=== PATIENT | female | born 1955 | race Caucasian/White ===

== ENCOUNTER 2020-03-14 15:37 | Emergency (ER) | payer BC, OTHER ==
--- NOTE | 2020-03-14 16:13 | EDM.PDOC ---
ED HPI GENERAL MEDICAL PROBLEM - General Chief Complaint: Eye Problems Stated Complaint: BLEEDING L EYE Time Seen by Provider: 03/14/20 16:00 Source of Information: Reports: Patient, Family History Limitations: Reports: No Limitations - History of Present Illness INITIAL COMMENTS - FREE TEXT/NARRATIVE: 64-year-old female who noticed a sudden redness on the lateral aspect of her left eye last evening, it seems to have extended up to the top of her eye and it feels full. She has no pain, no known trauma, she is not on anticoagulants or other medications. Her vision is fine Onset: Sudden Duration: Hour(s): (20 hours ago) Location: Reports: Other (Left eye) Associated Symptoms: Reports: No Other Symptoms - Related Data Allergies Allergy/AdvReac Type Severity Reaction Status Date / Time No Known Allergies Allergy Verified 03/14/20 15:52 Home Meds: Home Meds NK [No Known Home Meds] 03/14/20 [History] Past Medical History HEENT History: Reports: None Cardiovascular History: Reports: None Respiratory History: Reports: None Gastrointestinal History: Reports: Cholelithiasis [employer] History: Reports: None Musculoskeletal History: Reports: None Neurological History: Reports: None Psychiatric History: Reports: None Endocrine/Metabolic History: Reports: None Other Hematologic History: lymes Immunologic History: Reports: None Oncologic (Cancer) History: Reports: None Dermatologic History: Reports: None - Past Surgical History Head Surgeries/Procedures: Reports: None HEENT Surgical History: Reports: LASIK, Oral Surgery Other HEENT Surgeries/Procedures: bottom right tooth removed GI Surgical History: Reports: Cholecystectomy Other Female Surgeries/Procedures: bladder lift Social & Family History - Tobacco Use Smoking Status *Q: Never Smoker - Caffeine Use Caffeine Use: Reports: None - Recreational Drug Use Recreational Drug Use: No ED ROS GENERAL - Review of Systems Review Of Systems: See Below Constitutional: Denies: Fever, Chills, Decreased Appetite HEENT: Denies: Vision Change Respiratory: Reports: No Symptoms Cardiovascular: Reports: No Symptoms GI/Abdominal: Reports: No Symptoms Skin: Reports: No Symptoms. Denies: Bruising Neurological: Denies: Headache Psychiatric: Reports: No Symptoms Hematologic/Lymphatic: Denies: Easy Bleeding, Easy Bruising ED EXAM GENERAL W FULL EYE - Physical Exam Exam: See Below Exam Limited By: No Limitations General Appearance: Alert, No Apparent Distress Eye Exam: Left Eye: Other (The left eye has stable scleral hemorrhages for the lateral aspect extending to the upper aspect of the globe. Cornea, iris and pupil are normal) Eyelids: Bilateral: Normal Appearance Head: Atraumatic Respiratory/Chest: No Respiratory Distress Course - Vital Signs Last Recorded V/S: Last Vital Signs Temp 96.7 F L 03/14/20 15:52 Pulse 73 03/14/20 15:52 Resp 16 03/14/20 15:52 BP 153/71 H 03/14/20 15:52 Pulse Ox 96 03/14/20 15:52 - Re-Assessments/Exams Free Text/Narrative Re-Assessment/Exam: 03/15/20 07:03 Patient has an idiopathic left corneal hemorrhage. She was reassured, can return anytime if worsening or concerns or recheck with optometry early next week if not improving satisfactorily. No treatment needed. Departure - Departure Time of Disposition: 16:15 Disposition: Home, Self-Care 01 Clinical Impression: Scleral hemorrhage of left eye - Discharge Information Instructions: Subconjunctival Hemorrhage Referrals: PCP,None [Primary Care Provider] - Forms: ED Department Discharge Care Plan Goals: Cool compresses to the eye may be helpful but no treatment is really necessary. Return anytime if you feel you are worsening or develop other concerns, or consider rechecking at optometry later this week for a second opinion. Just let ting it heal without recheck is also fine as long as it is improving. Sepsis Event Note (ED) - Evaluation Sepsis Screening Result: No Definite Risk
== END 2020-03-14 16:19 | disposition home or self-care (01) ==
LOC: JP.ED 15:37
DX: H57.89 Other specified disorders of eye and adnexa (principal)
CPT/HCPCS: 99282